=== PATIENT | male | born 2000 | race Caucasian/White ===

== ENCOUNTER 2021-03-27 10:21 | Outpatient (CLI) | payer BC, SELFPAY ==
[2021-03-27 11:36] LABS: SARS-CoV-2 RNA PCR Negative (Negative)
== END 2021-03-27 10:22 | disposition home or self-care (01) ==
LOC: CHSLAB 10:25
PROVIDERS: PCP Internal Medicine; Visit Provider Internal Medicine
DX: R05 Cough (principal); J02.9 Acute pharyngitis, unspecified; Z20.822 Contact with and (suspected) exposure to COVID-19
CPT/HCPCS: C9803; U0003; U0005

== ENCOUNTER 2021-07-06 09:41 | Outpatient (CLI) | payer BC, SELFPAY ==
[2021-07-06 10:57] LABS: SARS-CoV-2 Ag Negative (Negative)
== END 2021-07-06 09:42 | disposition home or self-care (01) ==
LOC: CHSLAB 09:43
PROVIDERS: PCP Internal Medicine; Visit Provider Internal Medicine
DX: J06.9 Acute upper respiratory infection, unspecified (principal); Z20.822 Contact with and (suspected) exposure to COVID-19
CPT/HCPCS: 87426; C9803

== ENCOUNTER → 2021-09-28 03:35 | Outpatient (CLI) | payer BC, SELFPAY ==
[2021-09-28 19:12] LABS: SARS-CoV-2 RNA PCR Negative
== END ==
PROVIDERS: PCP Internal Medicine; Visit Provider Internal Medicine Gastroenterology
DX: Z01.812 Encounter for preprocedural laboratory examination (principal); Z20.822 Contact with and (suspected) exposure to COVID-19
CPT/HCPCS: C9803; U0003; U0005

== ENCOUNTER 2021-10-02 03:03 | Day surgery (SDC) | payer BC, OTHER, SELFPAY ==
[2021-09-22 13:22] VITALS: BMI 24.3
[2021-10-02 09:52] VITALS: BP 121/75; PULSE 102; RESP 20; TEMP 37.2; O2SAT 99; BMI 24.5
[2021-10-02] MEDS: LACTATED RINGERS 1,000 ML 150 ML IV CONT (10:03)
--- NOTE | 2021-10-02 10:06 | P.PNAN_ITS ---
Anes - Initial Pre Proc Eval Procedure: Operation Date: 10/02/21 11:15 Proposed Procedures p Esophagogastroduodenoscopy & Colonoscopy - Jean Etienne MD Date/Time: 10/02/21 10:06 Surgeon: Jean Etienne MD Pre Op Diagnosis: diarrhea, GERD Patient Data Age: 21 Gender: M Height: 1.68 m Weight: 68.8 kg Last Vital Signs Temp 37.2 C 10/02/21 09:52 Pulse 102 H 10/02/21 09:52 Resp 20 10/02/21 09:52 BP 121/75 10/02/21 09:52 Pulse Ox 99 10/02/21 09:52 Allergies Allergy/AdvReac Type Severity Reaction Status Date / Time No Known Allergies Allergy Verified 10/02/21 09:51 Home Medications Medication Instructions Recorded Confirmed Type pantoprazole 40 mg tablet,delayed 40 mg PO BID tablet 08/10/21 10/02/21 History release Patient hx anesthesia problems: none Family hx anesthesia problems: none Results Review: All pre-operative results and documents have been reviewed as part of the pre-operative evaluation. [facility] Past Medical History Medical History Diarrhea Lower abdominal pain Family History Family History Grandparent Diabetes mellitus Hyperlipidemia Hypertension Social History Social History Smoking status: Never smoker Tobacco type: smokeless tobacco Smokeless tobacco user: chewing tobacco Additional smoking assessment comments: chewing tobacco for 8 years Alcohol intake: current Drinks per week: 1 Alcohol use details: occasional Substance use: never Substance use type: does not use Living arrangements: with friend(s) Additional living arrangements comments: lives with [facility] Spiritual care concerns: No Anes - Eval Final PreProcedure Day of Procedure 10/02/21 10:06 Patient weight: normal Heart: regular rate and rhythm Lungs: clear to auscultation Airway: Mallampati scale class 1 Neurological: alert and oriented Last oral intake: >/= 8 hours ASA classification: II Emergent: no Anesthetic plan: proceed Anesthesia type and monitoring: general GIVS and standard monitoring Results Review: All pre-operative results and documents have been reviewed as part of the pre-operative evaluation. Informed Consent: The patient's anesthetic plan and its attendant risks and benefits were discussed with the patient/family/POA. Questions were solicited and answers provided to the satisfaction of the patient/family/POA.
--- NOTE | 2021-10-02 10:19 | PM.HPGS ---
History of Present Illness History of Present Illness Consent: Risks, benefits, and alternatives have been discussed and questions answered. Patient agrees to proceed with procedure. Chief complaint: diarrhea, GERD Narrative: Brian Phelan is a 21 year old male here for egd and colonoscopy, he has few years of intermittent heartburn and epigastric discomfort. Also will have cycles of lower abdominal discomfort with loose stools up to 5 times, normally during the day. He works in shift [employer] and whenever is working midnights he does ok. This has been going on and would like to know cause Review of Systems Constitutional: Constitutional: Denies headache(s) and Denies weakness Eyes: Eyes: Denies blurry vision ENT: Reports Normal hearing present, Denies headache(s) and Denies neck pain Cardiovascular: Cardiovascular: Denies chest pain and Denies dyspnea Respiratory: Respiratory: Denies dyspnea Gastrointestinal: Gastrointestinal: Reports no additional gastrointestinal complaints Genitourinary: Genitourinary: Denies dysuria Musculoskeletal: Musculoskeletal: Denies neck pain Integumentary/Breasts: Skin/Breast: Denies dry skin Neurologic: Reports Normal hearing present, Denies headache(s) and Denies weakness Psychiatric: Psychiatric: Denies anxiety Endocrine: Endocrine: Denies change in body appearance Hematologic/Lymphatic: Hematologic/Lymphatic: Denies easy bleeding Allergic/Immunologic: Allergic/Immunologic: Denies urticaria PMFSH Past Medical History Medical History (Updated 10/02/21 @ 10:20 by Jean Etienne MD) Diarrhea GERD (gastroesophageal reflux disease) Lower abdominal pain Family History Family History Grandparent Diabetes mellitus Hyperlipidemia Hypertension Social History Social History Smoking status: Never smoker Tobacco type: smokeless tobacco Smokeless tobacco user: chewing tobacco Additional smoking assessment comments: chewing tobacco for 8 years Alcohol intake: current Drinks per week: 1 Alcohol use details: occasional Substance use: never Substance use type: does not use Living arrangements: with friend(s) Additional living arrangements comments: lives with [employer] concerns: No Meds Home Medications and Allergies Home Medications Medication Instructions Recorded Confirmed Type pantoprazole 40 mg tablet,delayed 40 mg PO BID tablet 08/10/21 10/02/21 History release Allergies Allergy/AdvReac Type Severity Reaction Status Date / Time No Known Allergies Allergy Verified 10/02/21 09:51 Vital Signs Vital Signs - 24 hr 10/02/21 09:52 Temperature 99.0 F Pulse Rate 102 H Respiratory Rate 20 Blood Pressure 121/75 Pulse Oximetry 99 Exam Const: General: comfortable and no acute distress HENMT: General nose exam: Normal nares present Eyes: General: appearance normal, both eyes and all related structures Neck: Neck: no JVD Resp: Auscultation: clear to auscultation bilaterally Cardio: Rate: regular rate Rhythm: regular rhythm GI: Inspection: non-distended GI Palp: Yes Soft to palpation Skin: General skin exam: normal color Neuro: General: gait normal Speech: normal speech Extrem: General: normal to inspection Psych: Mental Status: mental status grossly normal Assessment and Plan Assessment and plan (1) Diarrhea: Code(s): R19.7 - Diarrhea, unspecified Status: Acute Assessment and Plan: colonoscopy with random bx (2) Lower abdominal pain: Code(s): R10.30 - Lower abdominal pain, unspecified Status: Acute (3) GERD (gastroesophageal reflux disease): Code(s): K21.9 - Gastro-esophageal reflux disease without esophagitis Status: Acute Assessment and Plan: egd with bx, better with ppi
[2021-10-02] MEDS: BENZOCAINE (*SP) 60 ML SPRAY CAN (HURRICAINE) 1 SPRAY MUCOUS MEM (10:28)
[2021-10-02 10:54] VITALS: BP 105/72; PULSE 73; RESP 15; O2SAT 100
[2021-10-02 11:04] VITALS: BP 121/80; PULSE 72; RESP 18; O2SAT 98
[2021-10-02 11:14] VITALS: BP 124/86; PULSE 74; RESP 16; O2SAT 99
== END 2021-10-02 11:18 | disposition home or self-care (01) ==
PROVIDERS: PCP Internal Medicine; Visit Provider Internal Medicine Gastroenterology
PROC: 0DJ08ZZ Inspection of Upper Intestinal Tract, Via Natural or Artificial Opening Endoscopic (ICD-10-PCS; CPT 43235; principal; 2021-10-02 11:15)
DX: R19.7 Diarrhea, unspecified (principal); R10.30 Lower abdominal pain, unspecified; D12.3 Benign neoplasm of transverse colon; K29.70 Gastritis, unspecified, without bleeding; K21.00 Gastro-esophageal reflux disease with esophagitis, without bleeding; F17.210 Nicotine dependence, cigarettes, uncomplicated
CPT/HCPCS: 45385; 45380; 43239; 88305; J2001; J2704; J7120

== ENCOUNTER 2023-06-30 16:01 | Outpatient (CLI) | payer BC, SELFPAY ==
--- NOTE | ~2023-06-30 | XR_ITS ---
EXAMINATION: XR foot RT min 3V DATE: 06/30/2023 16:37 INDICATION: Lateral right foot pain. TECHNIQUE: 4 views of right foot were obtained. COMPARISON: None. FINDINGS: There is a comminuted fracture of base of fifth metatarsal. The main distal fracture fragme nt demonstrates near-anatomic alignment. Joint spaces are normal. IMPRESSION: 1. Comminuted fracture of base of fifth metatarsal. Reviewed, dictated and finalized at location E.
== END 2023-06-30 16:02 | disposition home or self-care (01) ==
LOC: CHSIMG 16:03
PROVIDERS: PCP Internal Medicine; Visit Provider Nurse Practitioner Family
DX: M79.671 Pain in right foot (principal); S92.351A Displaced fracture of fifth metatarsal bone, right foot, initial encounter for closed fracture
CPT/HCPCS: 73630

== ENCOUNTER 2023-08-25 12:42 | Outpatient (CLI) | payer BC, OTHER, SELFPAY ==
--- NOTE | ~2023-08-25 | CT_ITS ---
EXAMINATION: CT sinus wo con DATE: 08/25/2023 13:07 INDICATION: Chronic sinusitis, left greater than right. Loss of smell. TECHNIQUE: Computed tomography (CT) of the paranasal sinuses was performed without contrast. Iterativ e reconstruction technique was employed. Exam dose: 295.03 mGy-cm total exam DLP. COMPARISON: None FINDINGS: There is prominent leftward of the nasal septum. Prominent intralamellar cell and tomas bullosa of the right middle nasal turbinate. There is prominent soft tissue swelling of the right middle and both inferior nasal turbinates. There is minimal soft tissue thickening of the right infundibulum and greater soft tissue thickening at the left maxillary ostium and infundibulum. There is minimal mucoperiosteal thickening of the frontal sinuses. There is mild focal patchy opacification of the ethmoid air cells. Mild mucoperiosteal thickening of the sphenoid sinuses, right greater than left. Prominent mucoperiosteal thickening of the left maxillary sinus. The mastoid air cells are normally developed and aerated. IMPRESSION: Prominent leftward of the nasal septum. Prominent intralamellar cell and tomas bullosa of the right middle nasal turbinate Minimal right and greater left ostiomeatal soft tissue thickening Paranasal sinus disease as indicated above Reviewed, dictated and finalized at [facility]. Reviewed, dictated and finalized at location L. IMPRESSION: Prominent leftward of the nasal septum. Prominent intralamellar cell and tomas bullosa of the right middle nasal turbi rafat Minimal right and greater left ostiomeatal soft tissue thickening Paranasal sinus disease as indicated above
== END 2023-08-25 12:43 | disposition home or self-care (01) ==
LOC: CHSIMG 12:45
PROVIDERS: PCP Internal Medicine; Visit Provider Internal Medicine
DX: J32.9 Chronic sinusitis, unspecified (principal); J34.2 Deviated nasal septum; M79.89 Other specified soft tissue disorders; J34.89 Other specified disorders of nose and nasal sinuses
CPT/HCPCS: 70486